=== PATIENT | female | born 1960 | race Caucasian/White ===

== ENCOUNTER 2018-08-24 22:00 | Emergency (ER) | payer MEDICARE, MEDICAID ==
[~2018-08-24] VITALS: Ht 152.4 cm; Wt 68.0 kg
[2018-08-24] MEDS ORDERED: NKM (22:05)
[2018-08-24] MEDS ORDERED: Haloperidol 5mg/ml Inj ONE (22:10)
[2018-08-24] MEDS ORDERED: LORazepam Inj 2mg/ml 1ml ONE (22:11)
[2018-08-24] MEDS ORDERED: LORazepam Inj 2mg/ml 1ml IM ONE (22:15)
[2018-08-24] MEDS ORDERED: Haloperidol 5mg/ml Inj IM ONE (22:15)
[2018-08-24 22:39] LABS: APPEARANCE,URINE CLEAR; BILIRUBIN, URINE NEGATIVE (NEGATIVE); COLOR,URINE PALE YELLOW; GLUCOSE, URINE (UA) NEGATIVE (NEGATIVE); KETONES,URINE NEGATIVE (NEGATIVE); LEUKOCYTE ESTERASE ,URINE NEGATIVE (NEGATIVE); NITRITE,URINE NEGATIVE (NEGATIVE); PH,URINE 6.5 (4.5-8.0); PROTEIN,URINE 3+ (NEGATIVE); UROBILINOGEN,URINE NORMAL MG/DL (0.0-1.0)
[2018-08-24 22:54] LABS: ANION GAP 14 mmol/L (5-15); BLOOD UREA NITROGEN 9 mg/dL (7-18); CALCIUM 8.7 MG/DL (8.5-10.1); CARBON DIOXIDE 21 MMOL/L (21-32); CHLORIDE 111 MMOL/L (98-107); CREATININE 1.1 MG/DL (0.55-1.30); POTASSIUM 3.9 MMOL/L (3.5-5.1); SODIUM 146 MMOL/L (136-145)
[2018-08-24 22:56] LABS: HEMATOCRIT 43.8 % (37.0-47.0); HEMOGLOBIN 14.9 G/DL (12.0-16.0); MEAN CORPUSCULAR VOLUME 90 FL (80-99); PLATELET COUNT 91 K/UL (150-450); RED BLOOD COUNT 4.89 M/UL (4.20-5.40); RED CELL DISTRIBUTION WIDTH 13.3 % (11.6-14.8); WHITE BLOOD COUNT 9.4 K/UL (4.8-10.8)
[2018-08-24 23:01] LABS: ALANINE AMINOTRANSFERASE 46 U/L (12-78); ALBUMIN 3.8 G/DL (3.4-5.0); ALBUMIN/GLOBULIN RATIO 0.7 (1.0-2.7); ALKALINE PHOSPHATASE 116 U/L (46-116); ASPARTATE AMINO TRANSFERASE 46 U/L (15-37); BILIRUBIN,TOTAL 0.4 MG/DL (0.2-1.0)
[2018-08-24 23:06] VITALS: BP 114/76
--- NOTE | 2018-08-25 01:06 | Emergency Room Report ---
History of Present Illness General Chief Complaint: Behavioral Complaint Source: Patient, EMS Present Illness HPI This is a 58-year-old female with unknown past medical history. She was brought in by police for intoxication and suicidal thoughts. She is been intoxicated and punched a R window. She didn't was running in the street expressing suicidal thoughts. She was brought in in handcuffs for agitation and suicidal thought. Because of her actions, police placed her on 5150. She denies any complaint. She was agitated and yelling. Allergies: Coded Allergies: No Known Allergies (Unverified , 08/24/18) Patient History Past Medical History: see triage record, old chart reviewed Past Surgical History: other Family History: none Social History: ETOH Last Menstrual Period: 2010 Now: No Immunizations: other Reviewed Nursing Documentation: PMH: Agreed; PSxH: Agreed Nursing Documentation-PMH Past Medical History: No Stated History Review of Systems ENT: Denies: sore throat Cardiovascular: Denies: chest pain, palpitations Gastrointestinal/Abdominal: Denies: nausea, vomiting, diarrhea Musculoskeletal: Denies: back problems Skin: Denies: rash Neurological: Denies: OMTA, seizures All Other Systems: negative except mentioned in HPI Physical Exam Vital Signs Date Time Temp Pulse Resp B/P (MAP) Pulse Ox O2 Delivery O2 Flow Rate FiO2 08/24/18 21:58 98.4 84 16 114/76 100 08/24/18 23:06 Room Air vitals unremarkable Sp02 EP Interpretation: reviewed, normal General Appearance: alert/responsive, no apparent distress, non-toxic, other - intoxicated Head: normocephalic, atraumatic Eyes: PERRL, EOMI ENT: oropharynx normal Neck: supple/symm/no masses Respiratory: effort normal, no rhonchi, no wheezing Cardiovascular: no murmur, gallop, rub Gastrointestinal: non-tender, no mass, non-distended, no rebound/guarding, normal bowel sounds Musculoskeletal: strength & tone normal, normal ROM, other - patient has a 2 cm skin avulsion on the left forearm Neurologic: oriented x3, sensory intact, motor strength/tone normal Skin: no rash, normal palpation Medical Decision Making Diagnostic Impression: Primary Impression: Behavioral disorder Additional Impressions: Alcohol intoxication Qualified Codes: F10.920 - Alcohol use, unspecified with intoxication, uncomplicated Cocaine abuse Suicidal thoughts Thrombocytopenia ER Course Patient with agitation and suicidal thought secondary to cocaine and alcohol intoxication. She had to be sedated with Haldol and Ativan here. She sleeping comfortably. Did not have to put her on 4 point restraint. When she is clinically sober, she will be medically clear for psychiatric evaluation. Arm skin avulsion does not need suturing. She has thrombocytopenia consistent with chronic alcohol abuse. Lab Results Impression labs with elevated alcohol level Last Vital Signs Date Time Temp Pulse Resp B/P (MAP) Pulse Ox O2 Delivery O2 Flow Rate FiO2 08/24/18 23:06 98.4 100 16 114/76 100 Room Air Status: improved Disposition: XFER TO PSYCH HOSP/UNIT Condition: Stable Referrals: NOT CHOSEN IPA/,REFERRING (PCP) Gareth Rico MD Aug 25, 2018 01:06
[2018-08-25 03:00] VITALS: BP 115/75
[2018-08-25 06:40] VITALS: BP 115/75
[2018-08-25 08:45] VITALS: BP 118/76
[2018-08-25 10:25] VITALS: BP 118/80
[2018-08-25 12:36] VITALS: BP 118/80
--- NOTE | 2018-08-25 23:15 | Consultation ---
DATE OF CONSULTATION: 08/25/2018 HISTORY OF PRESENT ILLNESS: This is a 58-year-old female with a history of drug use including alcohol and cocaine who has been admitted to the hospital on 5150. The patient apparently was intoxicated and was walking in the traffic. She stated that she was trying to cross the street. The patient was disrespectful and was passing gases during the evaluation. The patient was yelling and using profanity during the evaluation. The patient denied any suicidal or homicidal ideation. The patient did not endorse any psychotic symptoms. The patient stated that she would like to be discharged after she sleeps and feels better. The patient does not endorse any psychotic or manic symptoms. PAST PSYCHIATRIC HISTORY: history of of mental illness; however, it was noted that the patient has a history of depression and possible being bipolar. PAST MEDICAL HISTORY: Nonsignificant. ALLERGIES: No known drug allergies. SUBSTANCE ABUSE HISTORY: Positive for history of illicit drug use or alcohol including cocaine. MENTAL STATUS EXAMINATION: The patient is alert and oriented times self, place, and situation. Mood is dysphoric. Affect is constricted. Congruent with mood. Thought process is concrete. Thought content, no suicidal or homicidal ideation. No psychotic symptoms. Insight and judgment fair. ASSESSMENT: AXIS I: 1. Alcohol dependence. 2. Cocaine abuse. AXIS II: Deferred. AXIS III: As above. AXIS IV: Moderate AXIS V: 50 PLAN: 1. The patient's 5150 will be discontinued. 2. The patient will be discharged to her residence as the patient is not meeting the criteria for 5150 nor imminent danger self or others. 3. The patient was given medication and she received treatment. Anette Patel M.D. DR: Christie JOB#: [id number] CC:
== END 2018-08-25 12:54 ==
LOC: EDBD 22:00 → EMR 22:31
DX: F91.9 Conduct disorder, unspecified (principal); F10.129 Alcohol abuse with intoxication, unspecified; F14.10 Cocaine abuse, uncomplicated; R45.851 Suicidal ideations; D69.6 Thrombocytopenia, unspecified
CPT/HCPCS: 36415; 80053; 80307; 81003; 81025; 85007; 85025; 96372; 99284; G0480; J1630; 80329